=== PATIENT | male | born 1965 | race Asian ===

== ENCOUNTER 2025-03-02 12:41 | Emergency (ER) | payer BC, SELFPAY ==
[2025-03-02 12:42] VITALS: BP 149/98
[2025-03-02 12:57] LABS: Glucose - Point of Care 114 mg/dl (70-99)
[2025-03-02 13:00] VITALS: BP 110/74
[2025-03-02 14:00] VITALS: BP 103/67
[2025-03-02 14:04] LABS: Hematocrit 43.4 % (39.0-52.0); Hemoglobin 14.5 g/dL (13.0-18.0); Mean Corp Hgb Conc. 33.4 g/dL (33.0-37.0); Mean Corpuscular Volume 94.3 fL (80.0-94.0); Nucleated Red Blood Cells % 0 % (-); Platelet Count 181 10^3/uL (130-400); Red Cell Dist. Width 13.4 % (11.5-14.5)
[2025-03-02 14:14] LABS: Urine Character Clear (Clear)
[2025-03-02 14:21] LABS: ALT (SGPT) 26 U/L (0-50); AST (SGOT) 19 U/L (17-59); Albumin 4.6 g/dl (3.5-5.0); Alkaline Phosphatase 66 U/L (38-126); Blood Urea Nitrogen 16 mg/dl (9-20); Calcium 9.3 mg/dl (8.4-10.2); Carbon Dioxide 24 mmol/L (22-30); Chloride 110 mmol/L (98-107); Glucose 122 mg/dl (70-99); Potassium 4.4 mmol/L (3.5-5.1); Sodium 140 mmol/L (135-145); Total Protein 7.1 g/dl (6.3-8.2); eGFR > 60.00
[2025-03-02 14:22] LABS: D-Dimer < 0.27 ug/mlFEU (0.00-0.50)
--- NOTE | 2025-03-02 14:23 | ED.GENMED ---
History of Present Illness
General
Chief Complaint: Chest Pain
Time Seen by Provider: 03/02/25 13:16
History of Present Illness
History of Present Illness:
59-year-old male with history of [id number] diabetes, hypertension, hyperlipidemia, and tobacco use presents to the emergency department for evaluation of chest tightness ongoing for the past several weeks. Seems to be worse when taking
a deep breath. He notes that this past weekend he traveled to [place] to help his daughter move into college and felt increase in symptoms from exertion. He states it is not painful simply a tightness and feels as though he cannot take a full
breath. No calf swelling or leg pain. No prior history of coronary disease.
Past History
Past History
ED Past Medical History: None
ED Past Surgical History: None
Social History
Tobacco: Smoker
Alcohol: Occasional
Personal:
Living: alone
Review of Systems
Review of Systems
Allergies reviewed?: Yes
All Other Systems: ROS reviewed and negative except as documented in HPI and ROS
Phy Exam
Physical Exam
Physical Exam:
GEN: Well appearing, NAD, WDWN
HEENT: Oral mucosa moist, no scleral icterus
Cardiac: Regular rate and rhythm, no murmurs
Lung: No respiratory distress, no tachypnea, lungs clear to auscultation bilaterally
MSK: No gross deformity or injuries
Skin: Good color, no pallor or jaundice, no rashes
Neuro: AO x3, moves all extremities freely
Psych: Calm, cooperative
Scores
Heart Score for Chest Pain Patients
STEMI patient?: No
History: Moderately Suspicious
ECG: Normal
Age: >45 - <65 years
Risk Factors: >/= 3 Risk Factors or History of CAD
Troponin: </= Normal Limit
Heart Score for Chest Pain Patients: 4
Heart Score Risk: 20.3% MACE over next 6 weeks
Course
Orders/Labs/Results
Orders:
Orders
03/02/25 12:42
EKG [Electrocardiogram (*1)] Urgent
Reason for Study: Chest Pain
EKG- Treatment ONCE
03/02/25 13:32
CR Chest - 2 Views Urgent
Comment:
Reason For Exam: chest pain
03/02/25 13:50
Complete Blood Count/With Diff Urgent
Comprehensive Metabolic Panel Urgent
D-Dimer Urgent
Troponin I Urgent
Urinalysis Reflex To Culture Urgent
Date Specimen was Collected: 03/02/25
Time Specimen was Collected: 13:42
Abnormal Lab Results
03/02/25 03/02/25
12:55 13:50
WBC 4.5 L 10^3/uL
(4.8-10.8)
RBC 4.60 L 10^6/uL
(4.70-6.10)
MCV 94.3 H fL
(80.0-94.0)
MCH 31.5 H pg
(27.0-31.0)
Chloride 110 H mmol/L
(98-107)
Glucose 122 H mg/dl
(70-99)
Urine Glucose 4+ A
(Negative)
POC Glucose 114 H mg/dl
(70-99)
03/02/25 13:50
03/02/25 13:50
Vital Signs
Initial and Last Documented VS:
Initial Vital Signs
Temp Pulse Resp BP Pulse Ox
98 F 95 16 149/98 98
03/02/25 12:42 03/02/25 12:42 03/02/25 12:42 03/02/25 12:42 03/02/25 12:42
Last Documented Vital Signs
Temp Pulse Resp BP Pulse Ox
98 F 74 17 103/67 97
03/02/25 12:42 03/02/25 14:00 03/02/25 14:00 03/02/25 14:00 03/02/25 14:25
MDM/Problems Addressed
MDM/Problems Addressed:
Patient's workup was broadly unremarkable with normal nonischemic EKG and negative troponin/D-dimer. He does have numerous risk factors for coronary artery disease thus we will refer to cardiology through the chest pain hotline. At the completion
of the visit the patient noted to me that he was recently informed that he is being laid off of his job after over 17 years of employment and admits that stress potentially could be playing a role in his symptoms nevertheless cardiology follow-up is
warranted.
Comment
Comment:
EKG independently interpreted by me shows normal sinus rhythm with no concerning ST changes
*Pulse Oximetry
SaO2: 97
Oxygen Mode of Delivery: Room air
Patient hypoxic: no
*Critical Care Note
Total Time (30-74mins, 75-104mins- exclusive of procedures): Not Applicable
ED Attending Note
-
Portions of this chart may have been created with voice recognition software.� Occasional wrong word or��sound alike� substitutions may have occurred due to the inherent limitations of voice recognition software.
Discharge Plan
Departure
Patient Disposition: Home (Routine Discharge)
Date of Disposition: 03/02/25
Time of Disposition: 15:04
Patient with high blood pressure during this ER visit?: No
Discharge Problem:
Chest pain
Instructions: Chest Pain DCA Follow Up
Prescriptions:
No Action
metformin 500 mg tablet
500 mg PO BID Qty: 20 0RF
Referrals:
Jaocbo Kelly DO [Active, Cardiology] - Follow up in 2-3 days
Maurisio Min DO [Family Provider, Internal Medicine]
Interventions
Interventions:
*Risk Screen - Suicide Last Done: 03/02/25 13:54
*General Assessment Last Done: 03/02/25 13:54
*Neglect/Abuse Screening Last Done: 03/02/25 13:54
*ED- Fall Risk Assessment Last Done: 03/02/25 13:54
*ED COVID-19 Vaccine History Last Done: 03/02/25 13:54
*Nursing Disposition Last Done: 03/02/25 15:11
ED- Cardiac Assessment Last Done: 03/02/25 13:54
Discharge Date and Time
Discharge Date/Time: 03/02/25 15:12
Print Language: MONTENEGRIN
[2025-03-02 14:40] LABS: Troponin I < 0.012 ng/ml
== END 2025-03-02 15:12 | disposition home or self-care (01) ==
LOC: EMR 12:41
PROVIDERS: Physician Assistant; EMERGENCY PHYSICIAN Emergency Medicine; FAMILY PHYSICIAN Internal Medicine
DX: R07.89 Other chest pain (principal); E11.9 Type 2 diabetes mellitus without complications; E78.5 Hyperlipidemia, unspecified; I10 Essential (primary) hypertension; F17.200 Nicotine dependence, unspecified, uncomplicated
CPT/HCPCS: 99285; 71046; 80053; 81003; 82962; 84484; 85025; 85379; 93005